=== PATIENT | male | born 1960 | race Caucasian/White ===

== ENCOUNTER 2023-05-26 09:05 | Inpatient (IN) | payer MEDICARE, BC ==
[~2023-05-26] VITALS: Ht 188 cm; Wt 87.2 kg
[2023-05-26] MEDS ORDERED: METF10004 PO (09:18)
[2023-05-26] MEDS ORDERED: JARD1TAB PO (09:18)
[2023-05-26] MEDS ORDERED: TRES1INJ2 SC (09:19)
[2023-05-26] MEDS ORDERED: METO1TAB32 PO (09:20)
[2023-05-26] MEDS ORDERED: LISI20TA33 PO (09:21)
[2023-05-26] MEDS ORDERED: ASPI-655 PO (09:21)
[2023-05-26 09:55] LABS: VENOUS HCO3 25.4 MMOL/L (23.0-27.0); VENOUS O2 SATURATION 68.4 % (60.0-80.0); VENOUS PARTIAL PRESSURE CO2 43.9 mmHg (38.0-50.0); VENOUS PARTIAL PRESSURE O2 36.1 mmHg (30.0-50.0); VENOUS PH 7.381 UNITS (7.330-7.430); VENOUS STANDARD HCO3 23.5 MMOL/L; VENOUS TOTAL CO2 26.8 MMOL/L (24.0-28.0)
[2023-05-26 09:56] LABS: IONIZED CALCIUM 4.5 MG/DL (4.5-5.3)
[2023-05-26 10:08] LABS: BASO # 0.1 10^3/uL (0.0-0.2); BASO % 0.4 % (0.0-1.0); EOS % 0.1 % (0.0-3.0); HEMATOCRIT 52.5 % (42.0-52.0); HEMOGLOBIN 18.1 g/dl (13.5-17.5); LYMPH # 1.4 10^3/uL (1.5-5.0); LYMPH % 10.2 % (24.0-44.0); MEAN CORPUSCULAR HEMOGLOBIN 30.9 pg (27.0-33.0); MEAN CORPUSCULAR HGB CONC 34.5 g/dl (32.0-36.5); MEAN CORPUSCULAR VOLUME 89.6 fl (80.0-96.0); MONO # 1.1 10^3/uL (0.0-0.8); MONO % 8.1 % (2.0-8.0); NEUTROPHILS # 11.2 10^3/uL (1.5-8.5); NEUTROPHILS % 80.7 % (36.0-66.0); PLATELET COUNT, AUTOMATED 436 10^3/uL (150-450); RED BLOOD COUNT 5.86 10^6/uL (4.30-6.10); WHITE BLOOD COUNT 13.9 10^3/uL (4.0-10.0)
[2023-05-26 10:30] LABS: ALBUMIN 3.9 G/DL (3.2-5.2); ALKALINE PHOSPHATASE 61 U/L (46-116); ALT/SGPT 22 U/L (7.0-40); AST/SGOT 18 U/L (<34); BILIRUBIN,DIRECT 0.3 MG/DL (<0.4); BLOOD UREA NITROGEN 20 MG/DL (9-23); CARBON DIOXIDE LEVEL 26 MMOL/L (20-31); CHLORIDE LEVEL 96 MMOL/L (98-107); CREATININE FOR GFR 0.85 MG/DL (0.70-1.30); GLOMERULAR FILTRATION RATE > 60.0 (>49); GLUCOSE, FASTING 194 MG/DL (74-106); MAGNESIUM LEVEL 2.3 MG/DL (1.8-2.4); PHOSPHORUS LEVEL 2.8 MG/DL (2.4-5.1); POTASSIUM SERUM 4.9 MMOL/L (3.5-5.1); SODIUM LEVEL 130 MMOL/L (136-145); TOTAL PROTEIN 6.8 G/DL (5.7-8.2)
[2023-05-26] MEDS ORDERED: CLOPIDOGREL 75 MG TAB PO ONE (13:30)
[2023-05-26] MEDS ORDERED: MED REC IN PROGRESS XX SCH (13:40)
[2023-05-26 14:35] LABS: AMPHETAMINES LEVEL URINE NEGATIVE (NEGATIVE); BARBITURATES URINE NEGATIVE (NEGATIVE); BENZODIAZEPINES URINE NEGATIVE (NEGATIVE); CANNABINOIDS URINE NEGATIVE (NEGATIVE); COCAINE METABOLITE URINE NEGATIVE (NEGATIVE); METHADONE URINE NEGATIVE (NEGATIVE); OPIATES URINE NEGATIVE (NEGATIVE); PHENCYCLIDINE URINE NEGATIVE (NEGATIVE)
[2023-05-26 14:55] LABS: INR 0.91; PROTHROMBIN TIME 12.4 SECONDS (12.5-14.5)
[2023-05-26 15:03] LABS: CHOLESTEROL LEVEL 115 MG/DL (<200); HDL CHOLESTEROL 52.1 MG/DL (>40); HEMOGLOBIN A1c 6.4 % (4.0-6.0); LDL CHOLESTEROL 43.9 MG/DL (<100); NON-HDL-C 62.9 MG/DL; TRIGLYCERIDES LEVEL 95 MG/DL (<150)
[2023-05-26] MEDS ORDERED: GLUCAGON INJ 1MG VIAL SC PRN (15:15)
[2023-05-26] MEDS ORDERED: GLUCOSE 4GM CHEW TABLET PO PRN (15:15)
[2023-05-26] MEDS ORDERED: DEXTROSE 50% 50ML SYRINGE IV PRN (15:15)
[2023-05-26 15:23] VITALS: BP 146/81; TEMP 98.7; O2SAT 95
[2023-05-26 15:29] LABS: C REACTIVE PROTEIN QUANTITATIV < 0.40 MG/DL (<1.0)
[2023-05-26 15:42] LABS: PROCALCITONIN 0.05 ng/ml
[2023-05-26] MEDS ORDERED: levETIRAcetam 250MG TABLET (KEPPRA) PO ONE (15:45)
[2023-05-26] MEDS ORDERED: LR 1,000 ML IV ONE (16:00)
[2023-05-26] MEDS ORDERED: THERTAB52 PO (16:27)
[2023-05-26] MEDS ORDERED: EQL50TAB2 PO (16:27)
[2023-05-26] MEDS ORDERED: ROSU10TA6 PO (16:27)
[2023-05-26] MEDS ORDERED: INSU100I40 SQ (16:27)
[2023-05-26] MEDS ORDERED: HOME MED LIST COMPLETE! XX SCH (16:30)
[2023-05-26] MEDS ORDERED: ISOVUE-370 76% 100ML VIAL As Ordered ONE (16:54)
[2023-05-26] MEDS: INSULIN LISPRO (NovoLOG) PER UNIT SC SCH (17:30)
[2023-05-26] MEDS: ATORVASTATIN 20 MG TAB PO SCH (18:13)
[2023-05-26] MEDS: ACETAMINOPHEN 500 MG TAB PO PRN (18:47)
[2023-05-26 20:11] VITALS: BP 140/79; TEMP 98.8; O2SAT 97
[2023-05-26] MEDS: levETIRAcetam 250MG TABLET (KEPPRA) PO SCH (20:53)
[2023-05-26] MEDS ORDERED: INSULIN LISPRO (NovoLOG) PER UNIT SC SCH (21:00)
[2023-05-26 23:50] VITALS: BP 145/84; TEMP 98.3; O2SAT 97
[2023-05-27 04:45] VITALS: BP 150/76; TEMP 98.6; O2SAT 97
[2023-05-27 05:11] LABS: HEMATOCRIT 46.1 % (42.0-52.0); MEAN CORPUSCULAR HEMOGLOBIN 31.1 pg (27.0-33.0); MEAN CORPUSCULAR HGB CONC 34.5 g/dl (32.0-36.5); PLATELET COUNT, AUTOMATED 353 10^3/uL (150-450); RED BLOOD COUNT 5.12 10^6/uL (4.30-6.10); WHITE BLOOD COUNT 12.5 10^3/uL (4.0-10.0)
[2023-05-27 05:15] LABS: HEMOGLOBIN 15.9 g/dl (13.5-17.5)
[2023-05-27 05:40] LABS: BLOOD UREA NITROGEN 17 MG/DL (9-23); CALCIUM LEVEL 8.1 MG/DL (8.3-10.6); CARBON DIOXIDE LEVEL 26 MMOL/L (20-31); CHLORIDE LEVEL 102 MMOL/L (98-107); CREATININE FOR GFR 0.76 MG/DL (0.70-1.30); GLOMERULAR FILTRATION RATE > 60.0 (>49); GLUCOSE, FASTING 55 MG/DL (74-106); POTASSIUM SERUM 3.9 MMOL/L (3.5-5.1); SODIUM LEVEL 135 MMOL/L (136-145)
[2023-05-27] MEDS: INSULIN LISPRO (NovoLOG) PER UNIT SC SCH ×2 (07:30→11:42)
[2023-05-27 07:40] VITALS: BP 140/72; TEMP 98.5; O2SAT 97
[2023-05-27 08:09] VITALS: BP 140/72; TEMP 98.5; O2SAT 92
[2023-05-27] MEDS: ATORVASTATIN 20 MG TAB PO SCH (09:00)
[2023-05-27] MEDS ORDERED: ENOXAPARIN 40MG/0.4ML SYRINGE (J1650 PER 10MG) SC SCH (09:00)
[2023-05-27] MEDS ORDERED: JARDIANCE 10MG TABLET (PATIENT'S OWN MED) PO SCH (09:00)
[2023-05-27] MEDS ORDERED: CLOPIDOGREL 75 MG TAB PO SCH (09:00)
[2023-05-27] MEDS: levETIRAcetam 250MG TABLET (KEPPRA) PO SCH ×2 (09:01→20:14)
[2023-05-27] MEDS: ACETAMINOPHEN 500 MG TAB PO PRN (09:02)
[2023-05-27 12:00] VITALS: BP 137/67; TEMP 98; O2SAT 96
[2023-05-27 16:08] VITALS: BP 145/82; TEMP 97.8; O2SAT 97
[2023-05-27] MEDS: metFORMIN (GLUCOPHAGE) 1000MG TABLET PO SCH (19:32)
[2023-05-27 20:00] VITALS: BP 142/70; TEMP 97.5; O2SAT 96
[2023-05-28] VITALS: BP 147/88; TEMP 97.5; O2SAT 97
[2023-05-28 04:00] VITALS: BP 153/79; TEMP 97.7; O2SAT 96
[2023-05-28] MEDS ORDERED: ELIQ5TAB PO (06:27)
[2023-05-28 07:25] VITALS: BP 138/76; TEMP 98.1; O2SAT 96
[2023-05-28] MEDS ORDERED: LEVE500XR PO (08:08)
[2023-05-28] MEDS ORDERED: PANT40TA29 PO (08:09)
[2023-05-28] MEDS: levETIRAcetam 250MG TABLET (KEPPRA) PO SCH (08:41)
[2023-05-28] MEDS: metFORMIN (GLUCOPHAGE) 1000MG TABLET PO SCH (08:41)
[2023-05-28] MEDS: ATORVASTATIN 20 MG TAB PO SCH (08:42)
[2023-05-28] MEDS ORDERED: APIXABAN 5 MG TAB (ELIQUIS) PO SCH (09:00)
[2023-05-28] MEDS ORDERED: ASPIRIN 81MG ENTERIC TABLET PO SCH (09:00)
== END 2023-05-28 11:30 | disposition home or self-care (01) | DRG 65 ==
LOC: M ED 09:05 → M ED INP 13:35 → M PCU 15:09
PROVIDERS: ADMIT Internal Medicine; ATTEND Internal Medicine
DX: I63.9 Cerebral infarction, unspecified (principal); E87.1 Hypo-osmolality and hyponatremia; D68.9 Coagulation defect, unspecified; I10 Essential (primary) hypertension; R56.9 Unspecified convulsions; E11.9 Type 2 diabetes mellitus without complications; E78.5 Hyperlipidemia, unspecified; D72.829 Elevated white blood cell count, unspecified; Z85.810 Personal history of malignant neoplasm of tongue; Z79.4 Long term (current) use of insulin; Z79.899 Other long term (current) drug therapy; Z79.82 Long term (current) use of aspirin